=== PATIENT | male | born 1985 | race Caucasian/White ===

== ENCOUNTER 2022-10-20 21:05 | Emergency (ER) | payer SELFPAY ==
[~2022-10-20] VITALS: Ht 177.8 cm; Wt 76.7 kg
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
--- NOTE | 2022-10-20 21:40 | NUR ---
[employer] AT BEDSIDE
[2022-10-20] MEDS ORDERED: IBUPROFEN 400 MG TABLET ONE (21:58)
[2022-10-20] MEDS ORDERED: TDAP [DIPH/PERTUSSIS/TET] 0.5 ML VIAL IM ONE ×2 (21:58→22:00)
[2022-10-20] MEDS ORDERED: IBUPROFEN 400 MG TABLET PO ONE (22:00)
--- NOTE | 2022-10-20 22:03 | NUR ---
PT TAKEN TO CT
[2022-10-20] MEDS ORDERED: AMOX/CLAVULANATE 875 MG TABLET ONE (22:44)
--- NOTE | 2022-10-20 22:54 | NUR ---
COVID SWAB COLLECTED
[2022-10-20] MEDS ORDERED: AMOX/CLAVULANATE 875 MG TABLET PO ONE (23:00)
--- NOTE | 2022-10-20 23:12 | NUR ---
DR OREN ALCANTAR.
[2022-10-20] MEDS ORDERED: HYDROCODONE/APAP 5/325MG TABLET ONE (23:30)
[2022-10-20] MEDS ORDERED: HYDROCODONE/APAP 5/325MG TABLET PO ONE (23:30)
[2022-10-20] MEDS ORDERED: HYDR-3972 PO (23:33)
[2022-10-20] MEDS ORDERED: AMOX-430 PO (23:33)
--- NOTE | 2022-10-20 23:43 | NUR ---
Patient discharged to home in stable condition. Written and verbal after care instructions given. Patient verbalizes understanding of instruction.
[2022-10-20 23:51] VITALS: BP 140/90
== END 2022-10-21 00:06 | disposition home or self-care (01) ==
LOC: ER 21:11
DX: S02.2XXA Fracture of nasal bones, initial encounter for closed fracture (principal); S82.251A Displaced comminuted fracture of shaft of right tibia, initial encounter for closed fracture; S82.831A Other fracture of upper and lower end of right fibula, initial encounter for closed fracture; V44.5XXA Car driver injured in collision with heavy transport vehicle or bus in traffic accident, initial encounter; Y92.410 Unspecified street and highway as the place of occurrence of the external cause; S00.81XA Abrasion of other part of head, initial encounter; J32.0 Chronic maxillary sinusitis; R03.0 Elevated blood-pressure reading, without diagnosis of hypertension; S09.90XA Unspecified injury of head, initial encounter
CPT/HCPCS: 99285; 72125; 29505; 87426; 90471; 90715; 70450; 70486; 73700; 87081; C9803